=== PATIENT | male | born 1965 | race Hispanic/Latino ===

== ENCOUNTER 2017-08-27 09:19 | Emergency (ER) | payer SELFPAY ==
[~2017-08-27] VITALS: Ht 170.2 cm; Wt 80.0 kg
[~2017-08-27 09:19] MED LIST: AMOXICILLIN500 MG PO; HALDOL5 M1 OR; ZOLOFT100 MG PO
[2017-08-27] MEDS ORDERED: DOXYCYC MONO100 M2 PO (10:09)
[2017-08-27] MEDS ORDERED: FLONASE AL50 MCG/ACT NAB (10:10)
[2017-08-27 10:22] VITALS: BP 142/90
== END 2017-08-27 10:22 | disposition home or self-care (01) | DRG 153 ==
LOC: ED 09:19
DX: J32.1 Chronic frontal sinusitis (principal); R05 Cough; R06.2 Wheezing; R51 Headache

== ENCOUNTER 2019-05-04 06:42 | Day surgery (SDC) | payer SELFPAY ==
[~2019-05-04] VITALS: Ht 167.6 cm; Wt 94.3 kg
[~2019-05-04 06:42] MED LIST changes: +DOXYCYC MONO100 M2 PO; +FLONASE AL50 MCG/ACT NAB
[2019-05-04 09:28] VITALS: BP 105/69
== END 2019-05-04 09:10 | disposition home or self-care (01) | DRG 379 ==
LOC: ENDO 06:42 → ORM 08:00 → ENDO 08:30
PROVIDERS: ATTEND Surgery
PROC: 0DJD8ZZ Inspection of Lower Intestinal Tract, Via Natural or Artificial Opening Endoscopic (ICD-10-PCS; principal; 2019-05-04)
DX: K57.31 Diverticulosis of large intestine without perforation or abscess with bleeding (principal); K64.8 Other hemorrhoids

== ENCOUNTER 2022-06-15 10:57 | Emergency (ER) | payer SELFPAY ==
[~2022-06-15] VITALS: Ht 167.6 cm; Wt 96.0 kg
[2022-06-15 14:02] VITALS: BP 148/97
[2022-06-15 14:42] LABS: URINE BILIRUBIN - DIPSTICK NEGATIVE (NEGATIVE); URINE BLOOD DIPSTICK NEGATIVE (NEGATIVE); URINE COLOR YELLOW; URINE GLUCOSE - DIPSTICK NEGATIVE (NEGATIVE); URINE KETONE NEGATIVE (NEGATIVE); URINE LEUK ESTERASE NEGATIVE (NEGATIVE); URINE PROTEIN - DIPSTICK NEGATIVE (NEG-TRACE); URINE SPECIFIC GRAVITY 1.015; URINE UROBILINOGEN - DIPSTICK 0.2 E.U./dL (0.2)
[2022-06-15 14:45] LABS: URINE NITRITE - DIPSTICK NEGATIVE (Negative)
[2022-06-15] MEDS ORDERED: PREDNISONE10 MG PO (15:28)
[2022-06-15 15:45] VITALS: BP 148/97
== END 2022-06-15 15:50 | disposition home or self-care (01) | DRG 552 ==
LOC: ED 10:57
PROVIDERS: Nurse Practitioner
DX: M54.30 Sciatica, unspecified side (principal); S39.012A Strain of muscle, fascia and tendon of lower back, initial encounter; W50.2XXA Accidental twist by another person, initial encounter